=== PATIENT | female | born 1940 | race Caucasian/White ===

== ENCOUNTER → 2018-02-15 | Outpatient (CLI) | payer MEDICARE, BC ==
--- NOTE | 2018-02-16 08:17 | MM ---
Reason for exam: screening (asymptomatic). Last mammogram was performed 1 year and 11 months ago. History: Patient is postmenopausal and has history of other cancer at age 69. Benign excisional biopsy of the right breast. Physical Findings: A clinical breast exam by your physician is recommended on an annual basis and results should be correlated with mammographic findings. MG 3D Screening Mammo W/Cad Bilateral CC and MLO view(s) were taken. Prior study comparison: March 05, 2016, bilateral MG screening mammo w CAD. November 21, 2014, bilateral MG screening mammo w CAD. The breast tissue is heterogeneously dense. This may lower the sensitivity of mammography. Stable benign calcifications. There is no discrete abnormality. Focal asymmetry upper outer left breast is stable. No significant changes when compared with prior studies. ASSESSMENT: Benign, BI-RAD 2 RECOMMENDATION: Routine screening mammogram of both breasts in 1 year.
== END ==
LOC: RADMAMWWP 10:01
PROVIDERS: ATTEND Internal Medicine
DX: Z12.31 Encounter for screening mammogram for malignant neoplasm of breast (principal)
CPT/HCPCS: 77063; 77067

== ENCOUNTER → 2018-02-28 | Outpatient (CLI) | payer MEDICARE, BC ==
--- NOTE | 2018-02-28 15:38 | BD ---
EXAMINATION TYPE: Axial Bone Density DATE OF EXAM: 02/28/2018 COMPARISON: 02/26/2016 CLINICAL HISTORY: 77-year-old female age-related osteoporosis Height: 58.5 IN Weight: 113 LBS FRAX RISK QUESTIONS: Secondary Osteoporosis: Current Tobacco Use: YES RISK FACTORS HISTORY OF: Active: YES Diet low in dairy products/other sources of calcium: YES Postmenopausal woman: AGE 51 MEDICATIONS: Thyroid Medications: YES Which medication: PT DOES NOT KNOW How Lon+ YEARS Additional Medications: THYROID MEDS, DIABETES MEDS, LIPITOR, EXAM MEASUREMENTS: Bone mineral densitometry was performed using the [employer] System. PT STATES NO SPINE FRACTURES OR SURGERIES Bone mineral density as measured about the Lumbar spine is: ----- L1-L4(G/cm2): 0.978 T Score Values are as follows: ----- L2: -1.7 ----- L3: -2.1 ----- L4: -1.5 ----- L1-L4: -1.7 Bone mineral density has: Increased 8.2% since study of: 11/19/2001 Bone mineral density about the R hip (g/cm2): 0.860 Bone mineral density about the L hip (g/cm2): 0.938 T Score values are as follows: -----R Neck: -1.3 -----L Neck: -0.7 -----R Total: -0.7 -----L Total: -0.5 Bone mineral density has: Decreased -1.5% since study of: 02/26/2016 IMPRESSION: Osteopenia (T Score between -2.5 and -1). There is slightly increased risk of fracture and the patient may be considered for treatment. Re-Screen 2-5 years. NOTE: T-SCORE=SD OF THE YOUNG ADULT MEAN.
== END ==
LOC: RADBDWWP 11:04
PROVIDERS: ATTEND Internal Medicine
DX: M85.80 Other specified disorders of bone density and structure, unspecified site (principal)
CPT/HCPCS: 77080

== ENCOUNTER → 2018-08-02 | Outpatient (CLI) | payer MEDICARE ==
--- NOTE | 2018-08-02 13:51 | CTL ---
EXAMINATION TYPE: CT Low Dose Lung DATE OF EXAM ORDERED: 08/02/2018 HISTORY: . Lung cancer screening CT DLP: [address] CTDI: 1.72 mGy Automated exposure control for dose reduction was used. SCREENING VISIT: COMPARISON: None TECHNIQUE: Low dose computed tomography scan was performed through the chest at 1 mm thick sections a nd reconstructed images in the coronal plane at [address] DIAGNOSTIC QUALITY: Satisfactory FINDINGS: LUNGS: Nodules: There are multiple 6 mm less subpleural nodules bilaterally which are noncalcified. Apical pleural thickening is seen. There is diffuse interlobular septal thickening in a pattern kumar tible with pulmonary fibrosis which is advanced within the mid and lower lung zones. No pleural calci fications. There is apical pleural thickening. Basilar bronchiectasis noted. PLEURAL SPACE: Apical pleural thickening. No pleural calcifications. No pleural effusion or pneumothorax. HEART: Dense coronary artery calcification and cardiomegaly noted. No sizable pericardial effusion. OTHER FINDINGS: Structures of the upper abdomen demonstrate atherosclerotic change of the aorta. Resolution is limite d. Hypertrophic and degenerative changes of the vertebral column are noted. Asymmetric breast tissue on the left. This consistent with previous mammogram IMPRESSION: 1. Chronic interstitial lung disease which is advanced correlate for pulmonary fibrosis. 2. Multiple subpleural 6 mm less pulmonary nodules. FOLLOW UP CT CHEST RECOMMENDATION: 1 year follow-up CT LUNG RAD: Lung-Rad 2 Benign Appearance or Behavior
== END ==
LOC: RADCTMAIN 13:10
PROVIDERS: ATTEND Internal Medicine
DX: Z12.2 Encounter for screening for malignant neoplasm of respiratory organs (principal); J84.9 Interstitial pulmonary disease, unspecified; R91.8 Other nonspecific abnormal finding of lung field; F17.210 Nicotine dependence, cigarettes, uncomplicated

== ENCOUNTER → 2018-08-16 | Outpatient (CLI) | payer MEDICARE ==
[2018-08-17 00:40] LABS: Rheumatoid Factor 5 IU/mL (0-15)
== END | disposition home or self-care (01) ==
LOC: LABWHC1 11:26
PROVIDERS: ATTEND Internal Medicine Critical Care Medicine
DX: J84.112 Idiopathic pulmonary fibrosis (principal)
CPT/HCPCS: 36415; 85652; 86038; 86431

== ENCOUNTER → 2019-02-20 | Outpatient (CLI) | payer MEDICARE ==
--- NOTE | 2019-02-20 12:49 | MM ---
Reason for exam: screening (asymptomatic). Last mammogram was performed 1 year ago. History: Patient is postmenopausal and has history of other cancer at age 69. Benign excisional biopsy of the right breast. Physical Findings: A clinical breast exam by your physician is recommended on an annual basis and results should be correlated with mammographic findings. MG 3D Screening Mammo W/Cad Bilateral CC and MLO view(s) were taken. Prior study comparison: February 15, 2018, bilateral MG 3d screening mammo w/cad. March 05, 2016, bilateral MG screening mammo w CAD. There are scattered fibroglandular densities. Benign appearing calcifications in the left breast. No suspicious abnormality. Left upper outer quadrant focal asymmetry is similar back to 2015. No significant changes when compared with prior studies. ASSESSMENT: Benign, BI-RAD 2 RECOMMENDATION: Routine screening mammogram of both breasts in 1 year.
== END ==
LOC: RADMAMWWP 10:19
PROVIDERS: ATTEND Internal Medicine
DX: Z12.31 Encounter for screening mammogram for malignant neoplasm of breast (principal)
CPT/HCPCS: 77063; 77067

== ENCOUNTER → 2019-08-02 | Outpatient (CLI) | payer MEDICARE ==
[2019-08-02 10:29] LABS: Basophils # (A) 0.1 k/uL (0-0.2); Basophils % (A) 1 %; Eosinophils # (A) 0.4 k/uL (0-0.7); Eosinophils % (A) 4 %; HCT 41.2 % (34.0-46.0); HGB 12.9 gm/dL (11.4-16.0); Lymphocytes # (A) 3.3 k/uL (1.0-4.8); Lymphocytes % (A) 30 %; MCHC 31.3 g/dL (31.0-37.0); MCV 99.2 fL (80.0-100.0); Mean Platelet Volume 7.3; Monocytes # (A) 0.5 k/uL (0-1.0); Monocytes % (A) 5 %; Neutrophils # (A) 6.2 k/uL (1.3-7.7); Neutrophils % (A) 58 %; Platelet Count 329 k/uL (150-450); RBC 4.15 m/uL (3.80-5.40); RDW 12.7 % (11.5-15.5); WBC 10.8 k/uL (3.8-10.6)
[2019-08-02 15:23] LABS: Albumin 4.6 g/dL (3.80-4.90); Albumin/Globulin Ratio 1.53 (1.60-3.17); Anion Gap 6.4 mmol/L (4.00-12.00); Calcium 9.8 mg/dL (8.7-10.3); Carbon Dioxide 27.6 mmol/L (21.6-31.8); Chol/HDL Ratio 3.25; Non-African American GFR(CKD) 61.2 (60.0-200.0); Potassium 5.2 mmol/L (3.5-5.5); Total Bilirubin 0.5 mg/dL (0.2-1.2); Total Protein 7.6 g/dL (6.2-8.2)
[2019-08-02 15:34] LABS: T4, Free (Free Thyroxine) 0.8 ng/dL (0.80-1.80)
[2019-08-02 16:44] LABS: Hemoglobin A1C 6.3 % (4.0-6.0)
== END | disposition home or self-care (01) ==
LOC: LABWHC1 09:22
PROVIDERS: ATTEND Internal Medicine
DX: I10 Essential (primary) hypertension (principal); E78.2 Mixed hyperlipidemia; E03.9 Hypothyroidism, unspecified; E11.9 Type 2 diabetes mellitus without complications
CPT/HCPCS: 36415; 80053; 80061; 83036; 84439; 84443; 85025

== ENCOUNTER → 2020-07-23 | Outpatient (CLI) | payer MEDICARE ==
--- NOTE | 2020-07-24 13:49 | MM ---
Reason for exam: screening (asymptomatic). Last mammogram was performed 1 year and 5 months ago. History: Patient is postmenopausal and has history of other cancer at age 69. Benign excisional biopsy of the right breast. Physical Findings: A clinical breast exam by your physician is recommended on an annual basis and results should be correlated with mammographic findings. MG 3D Screening Mammo W/Cad Bilateral CC and MLO view(s) were taken. Prior study comparison: February 20, 2019, bilateral MG 3d screening mammo w/cad. February 15, 2018, bilateral MG 3d screening mammo w/cad. The breast tissue is heterogeneously dense. This may lower the sensitivity of mammography. No significant changes when compared with prior studies. ASSESSMENT: Benign, BI-RAD 2 RECOMMENDATION: Routine screening mammogram of both breasts in 1 year.
== END | disposition home or self-care (01) ==
LOC: RADMAMWWP 09:41
PROVIDERS: ATTEND Internal Medicine
DX: Z12.31 Encounter for screening mammogram for malignant neoplasm of breast (principal); Z78.0 Asymptomatic menopausal state
CPT/HCPCS: 77063; 77067

== ENCOUNTER → 2020-08-30 | Outpatient (CLI) | payer MEDICARE ==
--- NOTE | 2020-08-30 17:36 | US ---
EXAMINATION TYPE: US carotid duplex BILAT DATE OF EXAM: 08/30/2020 COMPARISON: NONE CLINICAL HISTORY: R09.89 left carotid bruit. Left bruit, pt states history of tobacco use EXAM MEASUREMENTS: RIGHT: Peak Systolic Velocity (PSV) cm/sec ----- Right CCA: 123.7 ----- Right ICA: 138.3 ----- Right ECA: 159.3 ICA/CCA ratio: 1.1 RIGHT: End Diastole cm/sec ----- Right CCA: 20.2 ----- Right ICA: 30.0 ----- Right ECA: 0.0 LEFT: Peak Systolic Velocity (PSV) cm/sec ----- Left CCA: 606.4 ----- Left ICA: 74.7 ----- Left ECA: 112.4 ICA/CCA ratio: 0.1 LEFT: End Diastole cm/sec ----- Left CCA: 181.4 ----- Left ICA: 28.4 ----- Left ECA: 12.3 VERTEBRALS (direction of flow): Right Vertebral: Antegrade Left Vertebral: Unable to visualize Rhythm: Normal Heterogeneous plaque bilaterally with significantly more on left side. 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 Stenosis is estimated mo re than 90% in the left common carotid artery and 70% stenosis in the right common carotid artery. Th ere is also approximate 70% stenosis in the right internal carotid artery. There is no flow seen in t he left vertebral artery. Criteria for Assigning % of Stenosis / Diameter reduction (Estimation based on the indirect measurements of the internal carotid artery velocities (ICA PSV). 1. Normal (no stenosis)=ICA PSV < 125 cm/s: ratio < 2.0: ICA EDV<40 cm/s. 2. Less than 50% stenosis=ICA PSV < 125 cm/s: ratio < 2.0: ICA EDV<40 cm/s. 3. 50 to 69% stenosis=ICA PSV of 125 to 230 cm/s: ration 2.0 ? 4.0: ICA EDV 40-100 cm/s. 4. Greater than 70% stenosis to near occlusion= ICA PSV > 230 cm/s: ratio > 4.0: ICA EDV > 100 cm/s. 5. Near occlusion= ICA PSV velocities may be low or undetectable: variable ratio and ICA EDV. 6. Total occlusion=unable to detect flow.
== END | disposition home or self-care (01) ==
LOC: RADUSWWP 16:27
PROVIDERS: ATTEND Internal Medicine
DX: I65.23 Occlusion and stenosis of bilateral carotid arteries (principal)
CPT/HCPCS: 93880

== ENCOUNTER → 2020-10-04 | Outpatient (CLI) | payer MEDICARE ==
--- NOTE | 2020-10-04 15:37 | CT ---
EXAMINATION TYPE: CT angio neck DATE OF EXAM: 10/04/2020 HISTORY: Bilateral carotid stenosis. COMPARISON: 08/30/2020 CT DLP: 196.7 mGycm. Automated Exposure Control for Dose Reduction was Utilized. TECHNIQUE: CTA scan of the neck is performed with IV Contrast, patient injected with 65ml mL of Isov ue 370, axial images are obtained, coronal and sagittal reformatted images are reviewed. Three-D aby nstructed images are created on an independent workstation and reviewed. Source images are reviewed. FINDINGS: Carotid/Vascular Structures: There is a three-vessel arch. Right vertebral artery is dominant. There is moderate narrowing of the distal common carotid artery estimated at 52%. This appears greater on t he rotating images. No significant narrowing of the right common carotid artery is evident. Carotid b ifurcations appear normal without significant flow-limiting stenosis. Other: Emphysematous changes are present. IMPRESSION: 1. Moderate stenosis between 50 and 69% within the distal left common carotid artery. 2. No significant flow-limiting stenosis is identified at the carotid bifurcations.
== END | disposition home or self-care (01) ==
LOC: RADCTMAIN 12:30
PROVIDERS: ATTEND Internal Medicine
DX: I65.22 Occlusion and stenosis of left carotid artery (principal)
CPT/HCPCS: 82565; 84520; 70498; 36415; Q9967

== ENCOUNTER → 2021-09-04 | Outpatient (CLI) | payer MEDICARE ==
--- NOTE | 2021-09-04 16:04 | BD ---
EXAMINATION TYPE: Axial Bone Density DATE OF EXAM: 09/04/2021 COMPARISON: 02-28-18 CLINICAL HISTORY: 81 years year old Female. ICD-10 CODE: Z12.31 SCREENING MAMMO Height: 58.5 Weight: 105 FRAX RISK QUESTIONS: Secondary Osteoporosis: Current Tobacco Use: YES RISK FACTORS HISTORY OF: Postmenopausal woman: YES AT 56 MEDICATIONS: Thyroid Medications: YES Which medication: LISINOPRIL How Lon+YEARS Additional Medications: DIABETIC MED Additional History: EXAM MEASUREMENTS: Bone mineral densitometry was performed using the [employer] System. Bone mineral density as measured about the Lumbar spine is: ----- L1-L4(G/cm2): 1.003 T Score Values are as follows: ----- L1: -2.0 ----- L2: -1.8 ----- L3: -1.4 ----- L4: -1.0 ----- L1-L4: -1.5 Bone mineral density has: Increased 2.6% since study of: 02.28.2018 Bone mineral density about the R hip (g/cm2): 0.881 Bone mineral density about the L hip (g/cm2): 0.895 T Score values are as follows: -----R Neck: -1.4 -----L Neck: -1.1 -----R Total: -1.0 -----L Total: -0.9 Bone mineral density has: Decreased -4.7% since study of: 02.28.18 FRAX%s: The graph provided illustrates a 12.4% chance for a major osteoporotic fx and a 4.6% chance f or the hips probability for fx in 10 years time. IMPRESSION: Osteopenia (T Score between -2.5 and -1). There is slightly increased risk of fracture and the patient may be considered for treatment. Re-Screen 2-5 years. NOTE: T-SCORE=SD OF THE YOUNG ADULT MEAN.
--- NOTE | 2021-09-05 07:55 | MM ---
Reason for Exam: Screening (asymptomatic). Last mammogram was performed 1 year(s) and 1 month(s) ago. Patient History: Menarche at age 12. First Full-Term at age 22. Postmenopausal. Other cancer, age 69. Benign Excisional Biopsy on the right side. Risk Values: Monique 5 year model risk: 1.9%. NCI Lifetime model risk: 3.0%. Prior Study Comparison: 02/15/2018 Bilateral Screening Mammogram, [facility]. 02/20/2019 Bilateral Screening Mammogram, [facility]. 07/23/2020 Bilateral Screening Mammogram, [facility]. Tissue Density: The breast tissue is heterogeneously dense. This may lower the sensitivity of mammography. Findings: Analyzed By CAD. There is no suspicious group of microcalcifications or new suspicious mass in either breast. Overall Assessment: Negative, BI-RAD 1 Management: Screening Mammogram of both breasts in 1 year. A clinical breast exam by your physician is recommended on an annual basis and results should be correlated with mammographic findings. Electronically signed and approved by: Deonte Espino M.D. Radiologis
== END | disposition home or self-care (01) ==
LOC: RADBDWWP 08:34
PROVIDERS: ATTEND Internal Medicine
DX: Z12.31 Encounter for screening mammogram for malignant neoplasm of breast (principal); M85.89 Other specified disorders of bone density and structure, multiple sites; Z78.0 Asymptomatic menopausal state
CPT/HCPCS: 77063; 77067; 77080

== ENCOUNTER 2021-10-01 09:00 | Day surgery (SDC) | payer MEDICARE ==
[2021-09-30 08:48] VITALS: BMI 20.7
[~2021-10-01 09:00] MED LIST: LACTATED RINGERS 1,000 ML IV SCH
[2021-10-01] MEDS ORDERED: LIDOCAINE 1% (10MG/ML) FOR IV START INTRADERMA ONE (09:35)
[2021-10-01 09:44] VITALS: RESP 16; TEMP 97.2
[2021-10-01 09:47] LABS: Glucose,Whole Blood 134 mg/dL (70-110)
[2021-10-01] MEDS ORDERED: PROPOFOL 10 MG/ML 20 ML VIAL IV ONE (10:36)
--- NOTE | 2021-10-01 10:51 | P.PCN ---
Date of Procedure: 10/01/21 Procedure(s) Performed: BRIEF HISTORY: Patient is a 81-year-old pleasant white female scheduled for an elective colonoscopy as a part of screening for colon rectal neoplasia. She does complain of intermittent diarrhea. PROCEDURE PERFORMED: Colonoscopy with biopsy. PREOPERATIVE DIAGNOSIS: Screening for colon cancer. IV sedation per Anesthesia. PROCEDURE: After informed consent was obtained, the patient, was brought into the endoscopy unit. IV sedation was administered by Anesthesia under continuous monitoring. Digital rectal examination was normal. Initially the Olympus CF-160 flexible video colonoscope was then inserted in the rectum, gradually advanced into the cecum without any difficulty. Careful examination was performed as the scope was gradually being withdrawn. Ileocecal valve and the appendiceal orifice were visualized and appeared normal. Prep was excellent. Mucosa of the cecum, ascending colon, transverse colon, descending colon, sigmoid colon, and rectum appeared normal. Retroflexion was performed in the rectum and no lesions were seen. Random biopsies were done from transverse colon. The patient tolerated the procedure well. IMPRESSION: Normal-appearing colon from rectum to cecum with no evidence of colorectal neoplasia . RECOMMENDATIONS: Findings of this examination were discussed with the patient as well as a family. She was advised to follow with the biopsy results.. Continue with Lomotil as needed.
[2021-10-01 11:15] VITALS: BP 134/64; PULSE 65
== END 2021-10-01 11:47 | disposition home or self-care (01) ==
LOC: ORWHC2ENDO 09:00
PROVIDERS: ATTEND Internal Medicine Gastroenterology
DX: Z12.11 Encounter for screening for malignant neoplasm of colon (principal); K52.831 Collagenous colitis; Z79.899 Other long term (current) drug therapy; E78.5 Hyperlipidemia, unspecified; E11.9 Type 2 diabetes mellitus without complications; E07.9 Disorder of thyroid, unspecified; Z79.84 Long term (current) use of oral hypoglycemic drugs; Z79.890 Hormone replacement therapy
CPT/HCPCS: 88305; 88313; 45380; J2704; 45378

== ENCOUNTER → 2022-09-10 | Outpatient (CLI) | payer MEDICARE ==
--- NOTE | 2022-09-10 17:08 | CT ---
EXAMINATION TYPE: CT heart w calcium score DATE OF EXAM: 09/10/2022 COMPARISON: CT low-dose lung cancer screening 08/02/2018 HISTORY: Screening for cardiovascular disorder. 213.9 CT DLP: 51.9 mGycm Automated exposure control for dose reduction was used. CT CALCIUM SCORING Coronary calcium is a marker for plaque (fatty deposits) in a blood vessel or atherosclerosis (harden ing of the arteries). The presence and amount of calcium detected in a coronary artery by the CT sca n, indicates the presence and amount of atherosclerotic plaque. These calcium deposits appear years before the development of heart disease symptoms such as chest pain and shortness of breath. A calcium score is computed for each of the coronary arteries based upon the volume and density of th e calcium deposits. This can be referred to as your calcified plaque burden. It does not correspond directly to the percentage of narrowing in the artery but does correlate with the severity of the un derlying coronary atherosclerosis. PROCEDURE TECHNIQUE - Prospective Gating was used. Slice thickness: 3mm. Density threshold (HU): 130, Pixel threshold: 3, Algorithm: discrete. RESULTS Region: LM Calcium Score (Agatston): 122.13 Volume (mm3): 95.73 Mass (g): 191.46 Region: RCA Calcium Score (Agatston): 0 Volume (mm3): 0 Mass (g): 0 Region: LAD Calcium Score (Agatston): 20.72 Volume (mm3): 18.24 Mass (g): 36.48 Region: CX Calcium Score (Agatston): 320.73 Volume (mm3): 247.4 Mass (g): 494.8 Region: PDA Calcium Score (Agatston): 0 Volume (mm3): 0 Mass (g): 0 Total: Calcium Score (Agatston): 463.58 Volume (mm3): 361.37 Mass (g): 722.74 TOTAL CALCIUM SCORE: 463.58 Pulmonary fibrotic changes redemonstrated. IMPRESSION: Calcium Score: 401 or higher Implication: Extensive atherosclerotic plaque Risk of Coronary Artery Disease: High likelihood of at least one significant coronary narrowing. CALCIUM SCORE IMPLICATION RISK OF C ORONARY ARTERY DISEASE 0 No identifiable plaque Very low, generally less than 5% 1-10 Minimal identifiable plaque Very unlikely, less than 10% 11-100 Definite, at least mild atherosclerotic plaque Mild or m inimal coronary narrowings likely 101-400 Definite, at least moderate atherosclerotic plaque Mild coronary ar nato disease highly likely, significant narrowing possible 401 or Higher Extensive atherosclerotic plaque High lik elihood of at least one significant coronary narrowing
== END | disposition home or self-care (01) ==
LOC: RADCTMAIN 14:59
PROVIDERS: ATTEND Internal Medicine
DX: Z13.6 Encounter for screening for cardiovascular disorders (principal); I25.10 Atherosclerotic heart disease of native coronary artery without angina pectoris
CPT/HCPCS: 75571

== ENCOUNTER → 2022-09-24 | Outpatient (CLI) | payer MEDICARE ==
--- NOTE | 2022-09-25 21:35 | MM ---
Reason for Exam: Screening (asymptomatic). Last mammogram was performed 1 year(s) and 1 month(s) ago. Patient History: Menarche at age 12. First Full-Term at age 22. Postmenopausal. Benign Excisional Biopsy on the right side. Niece had breast cancer, age 35. Risk Values: Monique 5 year model risk: 1.9%. NCI Lifetime model risk: 2.7%. Prior Study Comparison: 02/20/2019 Bilateral Screening Mammogram, [facility]. 07/23/2020 Bilateral Screening Mammogram, [facility]. 09/04/2021 Bilateral MG 3D screening mammo w/cad, [facility]. Tissue Density: There are scattered fibroglandular densities. Findings: Analyzed By CAD. Unchanged global asymmetry anterior upper outer quadrant left breast. There is no suspicious group of microcalcifications or new suspicious mass in either breast. Overall Assessment: Benign, BI-RAD 2 Management: Screening Mammogram of both breasts in 1 year. . Patient should continue monthly self-breast exams. A clinical breast exam by your physician is recommended on an annual basis. This exam should not preclude additional follow-up of suspicious palpable abnormalities. Note on Monique scores and lifetime risk: 1. A Monique score greater than 3% is considered moderate risk. If this is the case, consider specialist referral to assess eligibility for a risk reducing agent. 2. If overall lifetime risk for the development of breast cancer is 20% or higher, the patient may qualify for future screening with alternating mammogram and breast MRI. Electronically signed and approved by: Morgan Sanon M.D. Radiologist
== END | disposition home or self-care (01) ==
LOC: RADMAMWWP 09:54
PROVIDERS: ATTEND Internal Medicine
DX: Z12.31 Encounter for screening mammogram for malignant neoplasm of breast (principal); Z78.0 Asymptomatic menopausal state; Z80.3 Family history of malignant neoplasm of breast
CPT/HCPCS: 77063; 77067

== ENCOUNTER → 2022-11-13 | Outpatient (CLI) | payer MEDICARE ==
[~2022-11-13] MED LIST changes: -LACTATED RINGERS 1,000 ML IV SCH; +REGADENOSON 0.4 MG/5 ML SYRINGE IV PRN
--- NOTE | 2022-11-13 15:07 | NM ---
EXAMINATION TYPE: NM stress lexiscan cardiolite DATE OF EXAM: 11/13/2022 COMPARISON: NONE CLINICAL INDICATION: Female, 82 years old with history of R93.1 ABNORMAL FINDINGS ON DX IMAGING; TECHNIQUE: After the intravenous administration of 9.7 mCi Tc 99m Sestamibi - Cardiolite resting SPE CT images acquired 45 minutes post injection. The patient received 0.4mg Lexiscan, 24.2 mCi Tc 99m Sestamibi - Stress images obtained [address] injection FINDINGS: Review of stress and rest SPECT images demonstrates a small anterior wall defect on rest images. Not well-seen on stress images. Findings suggest attenuation artifact. No distinct reversibility is seen. Gated analysis shows normal wall motion with an estimated left ventricular ejection fraction of 69 %. TID is calculated at 0.90, within normal limits. IMPRESSION: Some anterior wall attenuation artifact. No scintigraphic evidence for inducible ischemia.
--- NOTE | 2022-11-13 18:47 | CA ---
Lexiscan Nuclear Stress Test Report Name: Rebecca Duvall Exam Date: 11/13/2022 09:21 Exam Location: [place] Stress Ht (in): 58 Wt (lb): 100 BSA: 1.36 Ordering Phys: Hermilo Morocho MD Referring Phys: Hermilo Morocho MD Technologist: ZION, Age: 82 Gender: F : 1940 Procedure CPT: Indications: R93.1 ABNORMAL FINDINGS ON DX IMAGING ICD-10 Codes: Patient History: Abnormal findings on diagnostic test Medications: Meds past 24 hrs: Pretest Chest Pain: STRESS TEST Lexiscan Protocol Exercise Duration (min:sec): 02:[address] Depressions (mm): Angina Score: Mccray Score: Resting HR (bpm): 58 Peak HR (bpm): 98 Resting BP (mmHg): 158 / 61 Peak BP (mmHg): / 50 MPHR: 139 Target HR: 118 % MPHR: 71 METS: 1.0 Total Dose: Peak Dose: Atropine: Double Product: BP Response: Stress Termination: Infusion complete Stress Symptoms: No chest pain or symptoms Stress Summary: ECG ANALYSIS Resting ECG: Stress ECG: CONCLUSIONS Nondiagnostic electrocardiogram stress testing Please follow-up on the Cardiolite portion Dr. Nikolai Ledesma MD (Electronically Signed) Final Date: 13 November 2022 18:46
== END | disposition home or self-care (01) ==
LOC: RADNMMAIN 07:38
PROVIDERS: ATTEND Internal Medicine
DX: R93.1 Abnormal findings on diagnostic imaging of heart and coronary circulation (principal)
CPT/HCPCS: 93017; 78452; A9500; J2785

== ENCOUNTER → 2023-07-29 | Outpatient (CLI) | payer MEDICARE ==
--- NOTE | 2023-07-29 11:31 | BD ---
EXAMINATION TYPE: Axial Bone Density DATE OF EXAM: 07/29/2023 CLINICAL HISTORY: 83 years old Female. ICD-10 CODE: M85.851 DISORDER OF BONE DENSITY Height: 58 Weight: 93.3 FRAX RISK QUESTIONS: Alcohol (3 or more units per day): no Family History (Parent hip fracture): no Glucocorticoids (More than 3mos): no (Ex: prednisone, prednisolone, methylprednisolone, dexamethasone, and hydrocortisone). History of Fracture in Adulthood: no Secondary Osteoporosis: 1. Type 1 Diabetes: no 2. Hyperthyroidism: no 3. Menopause before 45: no 4. Malnutrition: no 5. Chronic liver disease: no Rheumatoid Arthritis: no Current Tobacco Use: yes RISK FACTORS HISTORY OF: Hip Fracture (Right/Left): no Spine Fracture: no History of Wrist Fracture: no Surgery to Spine/Hip(right/left)/Wrist (right/left): no MEDICATIONS: Thyroid Medications: Synthroid How Long: past 10 years Osteoporosis Medications: no EXAM MEASUREMENTS: Bone mineral densitometry was performed using the [email or web address] System. Bone mineral density as measured about the Lumbar spine is: ----- L1-L4(G/cm2): 1.0658 T Score Values are as follows: ----- L1: -1.9 ----- L2: -1.0 ----- L3: -1.1 ----- L4: -0.1 ----- L1-L4: -0.9 Z Score Values are as follows: ----- L1: 0.7 ----- L2: 1.6 ----- L3: 1.5 ----- L4: 2.5 ----- L1-L4: 1.7 Bone mineral density has: increased 6.5 % since study of: 09/04/2021 Bone mineral density about the R hip (g/cm2): 0.853 Bone mineral density about the L hip (g/cm2): 0.884 T Score values are as follows: -----R Neck: -1.4 -----L Neck: -1.3 -----R Total: -1.2 -----L Total: -1.0 Z Score values are as follows: -----R Neck: 1.3 -----L Neck: 1.4 -----R Total: 1.4 -----L Total: 1.7 Bone mineral density has: decreased -2.1 % since study of: 09/04/2021 FRAX%s: The graph provided illustrates a 11.3% chance for a major osteoporotic fx and a 4.6% chance f or the hips probability for fx in 10 years time. IMPRESSION: Osteopenia (T Score between -2.5 and -1). There is slightly increased risk of fracture and the patient may be considered for treatment. Re-Screen 2-5 years. NOTE: T-SCORE=SD OF THE YOUNG ADULT MEAN.
== END | disposition home or self-care (01) ==
LOC: RADBDWWP 10:23
PROVIDERS: ATTEND Internal Medicine
DX: M85.89 Other specified disorders of bone density and structure, multiple sites (principal)
CPT/HCPCS: 77080

== ENCOUNTER → 2024-02-15 | Outpatient (CLI) | payer MEDICARE ==
--- NOTE | 2024-02-16 17:11 | MM ---
Reason for Exam: Screening (asymptomatic). Last mammogram was performed 1 year(s) and 5 month(s) ago. Patient History: Menarche at age 12. First Full-Term at age 22. Postmenopausal. Benign Excisional Biopsy on the right side. Niece had breast cancer, age 35. Risk Values: Monique 5 year model risk: 1.8%. NCI Lifetime model risk: 2.4%. Prior Study Comparison: 07/23/2020 Bilateral Screening Mammogram, [facility]. 09/04/2021 Bilateral MG 3D screening mammo w/cad, [facility]. 09/24/2022 Bilateral MG 3D screening mammo w/cad, [facility]. Tissue Density: The breasts are heterogeneously dense, which may obscure small masses. Findings: Analyzed By CAD. Unchanged global asymmetry anterior left upper outer quadrant. There is no suspicious group of microcalcifications or new suspicious mass in either breast. Overall Assessment: Benign, BI-RAD 2 Management: Screening Mammogram of both breasts in 1 year. . Patient should continue monthly self-breast exams. A clinical breast exam by your physician is recommended on an annual basis. This exam should not preclude additional follow-up of suspicious palpable abnormalities. Note on Monique scores and lifetime risk: 1. A Monique score greater than 3% is considered moderate risk. If this is the case, consider specialist referral to assess eligibility for a risk reducing agent. 2. If overall lifetime risk for the development of breast cancer is 20% or higher, the patient may qualify for future screening with alternating mammogram and breast MRI. [facility], , 02/16/2024 5:08 PM. Electronically signed and approved by: Morgan Sanon M.D. Radiologist
== END | disposition home or self-care (01) ==
LOC: RADMAMWWP 10:20
PROVIDERS: ATTEND Internal Medicine
DX: Z12.31 Encounter for screening mammogram for malignant neoplasm of breast (principal); R92.333 Mammographic heterogeneous density, bilateral breasts; Z78.0 Asymptomatic menopausal state
CPT/HCPCS: 77063; 77067